=== PATIENT | female | born 1985 | race Caucasian/White ===

== ENCOUNTER → 2019-12-15 | Outpatient (CLI) | payer OTHER ==
[~2019-12-15] MED LIST: AMOX875T PO; CARA1TAB6 PO; IBUP-1022 PO; MAGN1.743 PO; MIRA3350 PO
[2019-12-15 20:21] LABS: BASO % 0.4 % (0.0-1.0); EOS # 0.1 10^3/uL (0.0-0.5); EOS % 0.6 % (0.0-3.0); HEMATOCRIT 40.6 % (36.0-47.0); HEMOGLOBIN 12.7 g/dl (12.0-15.5); LYMPH % 22.5 % (24.0-44.0); MEAN CORPUSCULAR HEMOGLOBIN 28.2 pg (27.0-33.0); MEAN CORPUSCULAR HGB CONC 31.3 g/dl (32.0-36.5); MEAN CORPUSCULAR VOLUME 90.2 fl (80.0-96.0); MONO # 0.6 10^3/uL (0.0-0.8); MONO % 7.1 % (0.0-5.0); NEUTROPHILS # 6.2 10^3/uL (1.5-8.5); NEUTROPHILS % 69.1 % (36.0-66.0); PLATELET COUNT, AUTOMATED 183 10^3/uL (150-450)
[2019-12-15 20:35] LABS: ALBUMIN 4.2 GM/DL (3.2-5.2); ALT/SGPT 18 U/L (12-78); BILIRUBIN,TOTAL 0.8 MG/DL (0.2-1.0); BLOOD UREA NITROGEN 10 MG/DL (7-18); C REACTIVE PROTEIN QUANTITATIV 1.51 MG/DL (0.00-0.30); CALCIUM LEVEL 8.7 MG/DL (8.5-10.1); CARBON DIOXIDE LEVEL 26 MEQ/L (21-32); CHLORIDE LEVEL 107 MEQ/L (98-107); CREATININE FOR GFR 0.77 MG/DL (0.55-1.30); GLOMERULAR FILTRATION RATE > 60.0 (>60); GLUCOSE, FASTING 79 MG/DL (70-100); SODIUM LEVEL 139 MEQ/L (136-145); TOTAL PROTEIN 7.4 GM/DL (6.4-8.2)
[2019-12-15 21:09] LABS: ERYTHROCYTE SEDIMENTATION RATE 6 mm/hr (0-20)
== END ==
LOC: M WUC 17:11
PROVIDERS: ATTEND Physician Assistant
DX: K12.2 Cellulitis and abscess of mouth (principal)

== ENCOUNTER 2019-12-17 16:54 | Emergency (ER) | payer OTHER ==
[~2019-12-17] VITALS: Ht 162.6 cm; Wt 60.8 kg
[2019-12-17] MEDS ORDERED: IBUP-1022 PO (17:02)
[2019-12-17] MEDS ORDERED: AMOX875T PO (17:02)
[2019-12-17] MEDS ORDERED: GI COCKTAIL 50ML BTL(HYOSCYAMINE/MAALOX/LIDOCAINE VISCOUS)(1:3:1) PO ONE (17:15)
[2019-12-17] MEDS ORDERED: NS 1,000 ML IV ONE (17:15)
[2019-12-17] MEDS ORDERED: PANTOPRAZOLE 40MG INJ (PROTONIX) (C9113) IV ONE (17:15)
[2019-12-17 17:58] LABS: BASO % 0.2 % (0.0-1.0); EOS % 0.3 % (0.0-3.0); HEMATOCRIT 41.1 % (36.0-47.0); LYMPH # 1.1 10^3/uL (1.5-5.0); LYMPH % 7.8 % (24.0-44.0); MEAN CORPUSCULAR HEMOGLOBIN 28.3 pg (27.0-33.0); MEAN CORPUSCULAR HGB CONC 31.6 g/dl (32.0-36.5); MEAN CORPUSCULAR VOLUME 89.5 fl (80.0-96.0); MONO # 0.7 10^3/uL (0.0-0.8); MONO % 4.8 % (0.0-5.0); NEUTROPHILS # 11.7 10^3/uL (1.5-8.5); NEUTROPHILS % 86.5 % (36.0-66.0); PLATELET COUNT, AUTOMATED 183 10^3/uL (150-450); RED BLOOD COUNT 4.59 10^6/uL (4.00-5.40); WHITE BLOOD COUNT 13.5 10^3/uL (4.0-10.0)
[2019-12-17 18:28] LABS: ALBUMIN 3.7 GM/DL (3.2-5.2); BILIRUBIN,DIRECT 0.2 MG/DL (0.0-0.2); TOTAL PROTEIN 7.4 GM/DL (6.4-8.2)
[2019-12-17] MEDS ORDERED: CARA1TAB6 PO (19:52)
[2019-12-17] MEDS ORDERED: MIRA3350 PO (19:52)
[2019-12-17] MEDS ORDERED: MAGN1.743 PO (19:52)
[2019-12-17 20:16] VITALS: BP 116/71
--- NOTE | 2019-12-18 08:00 | REP ---
Acute abdominal series series including PA chest and supine upright abdomen: There are no comparisons. PA chest: The lung lo are clear. Cardiac size is normal. The brittany, mediastinum, skeletal structures are unremarkable. There is no free subdiaphragmatic air. Impression: Negative PA chest. Supine upright abdomen: The bowel gas pattern is normal. There are no calcifications. The skeletal structures and soft tissues are otherwise unremarkable. Impression: Normal bowel gas pattern. Electronically Signed by Yuval Tam MD 12/18/2019 07:52 A
== END 2019-12-17 20:20 | disposition home or self-care (01) ==
LOC: M ED 16:54
DX: K59.00 Constipation, unspecified (principal); R10.13 Epigastric pain
CPT/HCPCS: 74021; 80047; 80076; 81001; 83690; 84702; 85025; 96361; 96374; 99284; C9113

== ENCOUNTER → 2023-08-25 | Outpatient (CLI) | payer OTHER ==
[~2023-08-25] MED LIST changes: -MAGN1.743 PO; +MAGN296S37 PO
[2023-08-25 17:27] LABS: HEMATOCRIT 38.7 % (36.0-47.0); HEMOGLOBIN 12.6 g/dl (12.0-15.5); MEAN CORPUSCULAR HGB CONC 32.6 g/dl (32.0-36.5); MEAN CORPUSCULAR VOLUME 89.2 fl (80.0-96.0); PLATELET COUNT, AUTOMATED 177 10^3/uL (150-450); RED BLOOD COUNT 4.34 10^6/uL (4.00-5.40); WHITE BLOOD COUNT 11.8 10^3/uL (4.0-10.0)
[2023-08-25 18:29] LABS: HIV 1&2 SCREEN NEGATIVE (NEGATIVE)
[2023-08-25 18:36] LABS: HEPATITIS C VIRUS ABY INDEX 0.04 INDEX (<0.8)
[2023-08-25 19:44] LABS: GC DNA AMPLIFICATION NEGATIVE (NEGATIVE)
== END ==
LOC: M PLALAB 16:06
PROVIDERS: ATTEND Advanced Practice Midwife
DX: Z34.81 Encounter for supervision of other normal pregnancy, first trimester (principal)

== ENCOUNTER → 2023-08-25 | Outpatient (REF) | payer OTHER | LOC: M PLALAB 15:49 | PROVIDERS: ATTEND Advanced Practice Midwife | DX: Z53.9 Procedure and treatment not carried out, unspecified reason (principal); Z34.81 Encounter for supervision of other normal pregnancy, first trimester ==

== ENCOUNTER → 2023-11-05 | Outpatient (CLI) | payer OTHER | LOC: M WHC 14:35 | PROVIDERS: ATTEND Obstetrics & Gynecology | DX: O09.522 Supervision of elderly multigravida, second trimester (principal); Z3A.21 21 weeks gestation of pregnancy ==

== ENCOUNTER → 2023-12-03 | Outpatient (CLI) | payer OTHER, MEDICAID ==
[2023-12-03 17:51] LABS: HEMATOCRIT 34.6 % (36.0-47.0); HEMOGLOBIN 11.1 g/dl (12.0-15.5); MEAN CORPUSCULAR HEMOGLOBIN 29.6 pg (27.0-33.0); MEAN CORPUSCULAR HGB CONC 32.1 g/dl (32.0-36.5); MEAN CORPUSCULAR VOLUME 92.3 fl (80.0-96.0); PLATELET COUNT, AUTOMATED 192 10^3/uL (150-450); RED BLOOD COUNT 3.75 10^6/uL (4.00-5.40); WHITE BLOOD COUNT 11.1 10^3/uL (4.0-10.0)
== END ==
LOC: M PLALAB 14:50
PROVIDERS: ATTEND Specialist
DX: Z34.82 Encounter for supervision of other normal pregnancy, second trimester (principal)

== ENCOUNTER 2023-12-18 20:12 | Emergency (ER) | payer MEDICAID, OTHER ==
[~2023-12-18] VITALS: Ht 162.6 cm; Wt 80.3 kg
[2023-12-18 20:13] VITALS: BP 122/69; TEMP 98.7; O2SAT 99
[2023-12-18] MEDS ORDERED: ACET-683 PO (20:21)
[2023-12-18] MEDS ORDERED: PENI500T PO (20:44)
[2023-12-18] MEDS ORDERED: PENICILLIN V POTASSIUM 500 MG TAB PO ONE (20:45)
== END 2023-12-18 21:15 | disposition home or self-care (01) ==
LOC: M ED 20:12
DX: K04.7 Periapical abscess without sinus (principal); K08.89 Other specified disorders of teeth and supporting structures; Z79.82 Long term (current) use of aspirin; Z79.2 Long term (current) use of antibiotics; Z79.899 Other long term (current) drug therapy

== ENCOUNTER 2023-12-20 11:32 | Day surgery (SDC) | payer OTHER ==
[~2023-12-20] VITALS: Ht 162.6 cm; Wt 78.2 kg
[~2023-12-20 11:32] MED LIST changes: +ACET-683 PO; +PENI500T PO
[2023-12-20 11:59] VITALS: BP 144/58; TEMP 97.7; O2SAT 99
[2023-12-20] MEDS ORDERED: AMPICILLIN SOD/SULBACTAM SOD 3 GM in D5W MINI-BAG PLUS 100 ML IV ONE (13:30)
[2023-12-20] MEDS ORDERED: MULTTAB20 PO (14:00)
[2023-12-20] MEDS ORDERED: PENI500T PO (14:00)
[2023-12-20] MEDS ORDERED: ECOT81TA5 PO (14:00)
[2023-12-20] MEDS ORDERED: HOME MED LIST COMPLETE! XX SCH (14:05)
[2023-12-20] MEDS ORDERED: MEPIVACAINE HCL 3 % 1.7 ML DENTAL CARTRIDGE (CARBOCAINE) As Ordered ONE (14:20)
[2023-12-20] MEDS ORDERED: LIDOCAINE 2% W/ EPINEPHRINE 1.7 ML DENTAL INJ As Ordered ONE (14:20)
[2023-12-20] MEDS ORDERED: LIDOCAINE 2% 100MG/5ML SDV (FOR ANES.) As Ordered ONE (16:15)
[2023-12-20] MEDS ORDERED: ONDANSETRON 4MG 2ML VIAL As Ordered ONE (16:15)
[2023-12-20] MEDS ORDERED: propofoL 200 MG/20 ML VIAL As Ordered ONE (16:15)
[2023-12-20] MEDS ORDERED: MORPHINE 2 MG/ML 1ML VIAL IV PRN (16:45)
[2023-12-20] MEDS ORDERED: METOCLOPRAMIDE INJ 10MG/2ML VIAL IV PRN (16:45)
[2023-12-20] MEDS ORDERED: MEPERIDINE 25 MG/ML 1ML VIAL IV PRN (16:45)
[2023-12-20] MEDS ORDERED: diphenhydrAMINE 50MG/ML VIAL IV PRN (16:45)
[2023-12-20] MEDS ORDERED: ONDANSETRON 4MG 2ML VIAL IV PRN (16:45)
[2023-12-20 17:20] VITALS: BP 119/68; TEMP 98.3; O2SAT 100
[2023-12-20 17:50] VITALS: BP 118/72; TEMP 98; O2SAT 99
[2023-12-20 18:28] VITALS: BP 120/68; TEMP 98.7; O2SAT 98
== END 2023-12-20 18:40 | disposition home or self-care (01) ==
LOC: M SDC 11:32 → M OBS 11:55 → M SDC 18:40
PROVIDERS: ATTEND Dentist
DX: O99.612 Diseases of the digestive system complicating pregnancy, second trimester (principal); K04.7 Periapical abscess without sinus; K12.2 Cellulitis and abscess of mouth; Z3A.24 24 weeks gestation of pregnancy
CPT/HCPCS: 40800; 88300; D7210; D9223; J2405

== ENCOUNTER → 2024-01-11 | Outpatient (CLI) | payer OTHER ==
[~2024-01-11] MED LIST changes: +ECOT81TA5 PO; +MULTTAB20 PO
== END ==
LOC: M LAB 07:08
PROVIDERS: ATTEND Specialist
DX: R73.02 Impaired glucose tolerance (oral) (principal)

== ENCOUNTER → 2024-02-04 | Outpatient (REF) | payer OTHER, MEDICAID ==
[2024-02-04 17:48] LABS: APPEARANCE, URINE CLOUDY (CLEAR); BACTERIA, URINE AUTO NEGATIVE (NEGATIVE); BILIRUBIN, URINE AUTO NEGATIVE (NEGATIVE); BLOOD, URINE BLOOD 3+ (NEGATIVE); CALCIUM OXALATE CRYSTALS LARGE; COLOR, URINE YELLOW (YELLOW); GLUCOSE, URINE (UA) AUTO NEGATIVE (NEGATIVE); KETONE, URINE AUTO 1+ mg/dL (NEGATIVE); LEUKOCYTE ESTERASE, URINE AUTO TRACE (NEGATIVE); NITRITE, URINE AUTO NEGATIVE (NEGATIVE); PROTEIN, URINE AUTO 2+ mg/dL (NEGATIVE); RBC, URINE AUTO TNTC /HPF (0-3); SPECIFIC GRAVITY URINE AUTO 1.018 (1.002-1.035); SQUAMOUS EPITHELIAL CELL UR AU 13 /HPF (0-6); TRANSITIONAL EPITHELIAL AUTO <1 /HPF; UROBILINOGEN, URINE AUTO 0.2 mg/dL (0.0-2.0); WBC, URINE AUTO 4 /HPF (0-3)
== END ==
LOC: M PLALAB 16:21
PROVIDERS: ATTEND Obstetrics & Gynecology
DX: R30.0 Dysuria (principal)

== ENCOUNTER → 2024-02-05 | Outpatient (REF) | payer OTHER, MEDICAID | LOC: M SFHCWAGY 16:46 | PROVIDERS: ATTEND Obstetrics & Gynecology | DX: R82.90 Unspecified abnormal findings in urine (principal) ==

== ENCOUNTER → 2024-02-19 | Outpatient (REF) | payer OTHER, MEDICAID | LOC: M SFHCWAGY 14:51 | PROVIDERS: ATTEND Specialist | DX: Z34.83 Encounter for supervision of other normal pregnancy, third trimester (principal) ==

== ENCOUNTER → 2024-02-23 | Outpatient (CLI) | payer MEDICAID, OTHER, SELFPAY ==
[2024-02-23 15:16] LABS: HEMATOCRIT 34.6 % (36.0-47.0); MEAN CORPUSCULAR HGB CONC 31.8 g/dl (32.0-36.5); MEAN CORPUSCULAR VOLUME 91.3 fl (80.0-96.0); PLATELET COUNT, AUTOMATED 176 10^3/uL (150-450); RED BLOOD COUNT 3.79 10^6/uL (4.00-5.40); WHITE BLOOD COUNT 9.5 10^3/uL (4.0-10.0)
[2024-02-23 15:18] LABS: TOTAL PROTEIN,RANDOM URINE 106.5 MG/DL (0.0-14.0)
[2024-02-23 15:22] LABS: CREATININE,RANDOM URINE 181.8 MG/DL
[2024-02-23 15:47] LABS: ALBUMIN 2.5 G/DL (3.2-5.2); ALKALINE PHOSPHATASE 127 U/L (46-116); ALT/SGPT 11 U/L (7.0-40); AST/SGOT 13 U/L (<34); BILIRUBIN,TOTAL 0.6 MG/DL (0.3-1.2); BLOOD UREA NITROGEN 8 MG/DL (9-23); CALCIUM LEVEL 7.8 MG/DL (8.5-10.1); CARBON DIOXIDE LEVEL 25 MMOL/L (20-31); CHLORIDE LEVEL 107 MMOL/L (98-107); CREATININE FOR GFR 0.76 MG/DL (0.55-1.30); GLOMERULAR FILTRATION RATE > 60.0 (>60); GLUCOSE, FASTING 65 MG/DL (60-100); POTASSIUM SERUM 3.9 MMOL/L (3.5-5.1); SODIUM LEVEL 137 MMOL/L (136-145); TOTAL PROTEIN 5.4 G/DL (5.7-8.2)
== END ==
LOC: M RAD 13:37
PROVIDERS: ATTEND Obstetrics & Gynecology
DX: R31.0 Gross hematuria (principal)

== ENCOUNTER → 2024-07-20 | Outpatient (REF) | payer MEDICAID, OTHER ==
[2024-07-23 11:57] LABS: HPV APTIMA Not Detected (Not Detected)
== END ==
LOC: M SFHCWAGY 15:29
PROVIDERS: ATTEND Nurse Practitioner Family
DX: Z12.4 Encounter for screening for malignant neoplasm of cervix (principal)